=== PATIENT | female | born 1985 | race American Indian/Alaskan Native ===

== ENCOUNTER 2018-03-11 15:09 | Emergency (ER) | payer MEDICAID, OTHER ==
--- NOTE | 2018-03-11 16:00 | Emergency Department Report ---
ED Lower Extremity HPI - General Chief Complaint: Extremity Injury, Lower Stated Complaint: RIGHT LEG PAIN Source: patient Mode of arrival: Ambulatory Limitations: No Limitations - History of Present Illness Initial Comments: Since a 32-year-old -[place] female who presents with right thigh pain for 4-5 days. Patient states she is in rehabilitation at [facility] and 2 weeks clean. Patient states she thinks she dropped a crack bite on her right lateral thigh a few weeks ago but she continues to have tenderness in the lateral area. She also states she is not sure if this is related to varicose veins. She denies swelling, warmth, erythema, ecchymosis, fever, or numbness or tingling. MD Complaint: thigh injury Onset/Timin -: week(s) Injury: Thigh: Right Type of Injury: unknown Place: home Severity: moderate Severity scale (0 -10): 6 Improves With: rest Worsens With: palpation Context: walking Associated Symptoms: ambulatory. denies: snap/pop sensation, swelling, numbness, tingling, unable to bear weight, able to partially bear weight - Related Data Home Medications Medication Instructions Recorded Confirmed Last Taken No Known Home Medications [No 05/29/13 05/29/13 Unknown Reported Home Medications] Allergies Allergy/AdvReac Type Severity Reaction Status Date / Time No Known Allergies Allergy Unverified 05/29/13 08:24 ED Review of Systems ROS: Stated complaint: RIGHT LEG PAIN Other details as noted in HPI Constitutional: denies: chills, fever Respiratory: denies: cough, shortness of breath, wheezing Cardiovascular: denies: chest pain, palpitations Gastrointestinal: denies: abdominal pain, nausea, diarrhea Musculoskeletal: arthralgia (right thigh) Skin: denies: rash, lesions Neurological: denies: headache, weakness, paresthesias Psychiatric: denies: anxiety, depression ED Past Medical Hx - Past Medical History Previous Medical History?: Yes Hx Psychiatric Treatment: Yes Additional medical history: varicose veins - Surgical History Past Surgical History?: Yes Additional Surgical History: right acl repair x 3 - Social History Smoking Status: Current Every Day Smoker - Medications Home Medications: Home Medications Medication Instructions Recorded Confirmed Last Taken Type No Known Home Medications [No 05/29/13 05/29/13 Unknown History Reported Home Medications] ED Physical Exam - General Limitations: No Limitations General appearance: alert, in no apparent distress - Respiratory Respiratory exam: Present: normal lung sounds bilaterally. Absent: respiratory distress - Cardiovascular Cardiovascular Exam: Present: regular rate, normal rhythm. Absent: systolic murmur, diastolic murmur, rubs, gallop - GI/Abdominal GI/Abdominal exam: Present: soft, normal bowel sounds - Expanded Lower Extremity Exam Right Hip exam: Present: normal inspection, full ROM Upper Leg exam: Present: full ROM, tenderness (bulging varicosities on lateral that is 5-8 mm in diameter, tenderness). Absent: swelling, abrasion, laceration, ecchymosis, deformity, crepidus, dislocation, erythema Knee exam: Present: normal inspection, full ROM Lower Leg exam: Present: normal inspection, full ROM Ankle exam: Present: normal inspection, full ROM Foot/Toe exam: Present: normal inspection, full ROM Neuro vascular tendon exam: Present: no vascular compromise Gait: Positive: observed and normal - Neurological Exam Neurological exam: Present: alert, oriented X3 - Psychiatric Psychiatric exam: Present: normal affect, normal mood - Skin Skin exam: Present: warm, dry, intact, normal color. Absent: rash ED Course Vital Signs 03/11/18 15:13 Temperature 98.1 F Pulse Rate 96 H Respiratory 18 Rate Blood Pressure 128/84 O2 Sat by Pulse 98 Oximetry ED Lower Extremity MDM - Medical Decision Making Patient was examined by me. Vitals are normal and patient is in no acute distress. On focal exam bulging varicosities on lateral that is 5-8 mm in diameter. Findings susceptible of varicose veins. Patient informed of results. Instructed to take ibuprofen or naproxen for pain. Referral to vascular surgery. Patient discharged home in stable condition. Follow up with PCP in 2-3 days. Critical care attestation.: If time is entered above; I have spent that time in minutes in the direct care of this critically ill patient, excluding procedure time. ED Disposition Clinical Impression: Right thigh pain Varicose vein of leg Qualifiers: Varicose vein complication: pain Laterality: right Qualified Code(s): I83.811 - Varicose veins of right lower extremity with pain Disposition: TO HOME OR SELFCARE Is pt being admited?: No Does the pt Need Aspirin: No Condition: Stable Instructions: Varicose Veins (ED), Arthralgia (ED) Additional Instructions: Follow-up with a vascular surgeon. Elevate legs while sitting. Avoid prolonged standing. Referrals: KARMEN MODI MD [Staff Physician] - 3-5 Days Time of Disposition: 16:05
== END 2018-03-11 16:12 | disposition home or self-care (01) ==
LOC: ED 15:09
CPT/HCPCS: 99282